=== PATIENT | male | born 1970 | race Two or more races ===

== ENCOUNTER 2018-09-16 15:46 | Inpatient (IN) | payer SELFPAY ==
[~2018-09-16] VITALS: Ht 180.3 cm; Wt 89.4 kg
[2018-09-16] MEDS ORDERED: IV NORMAL SALINE 1,000ML 1,000 ML IV SCH (15:49)
[2018-09-16 16:31] LABS: BASO % 0 % (0-3); EOS # 0.1 x10^3/uL (0.0-0.7); EOS % 1 % (0-3); HEMATOCRIT 45.8 % (39.0-53.0); HEMOGLOBIN 15.6 g/dL (13.0-17.5); LYMPH # 2.1 x10^3/uL (1.0-4.8); LYMPH % 32 % (24-48); MEAN CORPUSCULAR HEMOGLOBIN 32 pg (25-35); MEAN CORPUSCULAR HGB CONC 34 g/dL (31-37); MEAN CORPUSCULAR VOLUME 93 fL (79-100); MONO # 0.4 x10^3/uL (0.0-1.1); MONO % 7 % (0-9); NEUT # 3.8 x10^3uL (1.8-7.7); NEUT % 60 % (31-73); PLATELET COUNT 298 x10^3/uL (140-400); RED BLOOD COUNT 4.92 x10^6/uL (4.30-5.70); RED CELL DISTRIBUTION WIDTH 12.9 % (11.5-14.5); WHITE BLOOD COUNT 6.4 x10^3/uL (4.0-11.0)
--- NOTE | 2018-09-16 16:35 | RAD ---
PQRS Compliance statement: One or more of the following individualized dose reduction techniques were utilized for this examination: 1. Automated exposure control. 2. Adjustment of the mA and/or kV according to patient size. 3. Use of iterative reconstruction technique. Indication:altered mental status, drowsiness TECHNIQUE: CT head without IV contrast COMPARISON:None FINDINGS: No pathologic extra-axial or intra-axial fluid collection. The ventricles and basal cisterns are within normal limits. No acute intracranial bleed. No focal loss of fitzgerald-white differentiation. Orbits within normal limits. No suspicious calvarial lesion. Visualized paranasal sinuses and mastoid air cells are clear. IMPRESSION: No acute intracranial process on this noncontrast CT. If concern for acute ischemic stroke is high, please consider MRI brain. Electronically signed by: Bao Ching DO (09/16/2018 4:32 PM) [id number]
[2018-09-16 16:50] LABS: ALBUMIN 3.7 g/dL (3.4-5.0); CALCIUM 8.9 mg/dL (8.5-10.1); CREATININE 1.5 mg/dL (0.7-1.3); GFR 49.7; MAGNESIUM 2.5 mg/dL (1.8-2.4); POTASSIUM 3.7 mmol/L (3.5-5.1); TOTAL BILIRUBIN 0.4 mg/dL (0.2-1.0); TOTAL PROTEIN 7.5 g/dL (6.4-8.2)
[2018-09-16] MEDS ORDERED: NITROGLYCERIN SUBLINGUAL 0.4 MG BOTTLE OF 25. SL ONE (17:15)
[2018-09-16] MEDS ORDERED: ASPIRIN 81 MG TAB.CHEW PO ONE (17:15)
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
[2018-09-16 18:29] LABS: BARBITURATES NEG (NEG); BENZODIAZEPINES NEG (NEG); CANNABINOIDS NEG (NEG); COCAINE NEG (NEG); METHADONE NEG (NEG); OPIATES NEG (NEG); PHENCYCLIDINE NEG (NEG)
[2018-09-16 18:35] LABS: AMPHETAMINE/METHAMPHETAMINE POS (NEG)
--- NOTE | 2018-09-16 19:12 | EKG ---
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
[2018-09-16] MEDS ORDERED: ONDANSETRON PF 4 MG/2 ML VIAL. IV PRN (19:15)
[2018-09-16] MEDS ORDERED: ENOXAPARIN ** NOTE DOSE ** SYRINGE SQ ONE (19:30)
[2018-09-16] MEDS ORDERED: NITROGLYCERIN OINT 1 GM PACKET. TP ONE (19:30)
[2018-09-16 20:23] VITALS: BP 145/82
[2018-09-16] MEDS ORDERED: ACETAMINOPHEN 325 MG TABLET PO PRN (20:45)
[2018-09-16] MEDS: NITROGLYCERIN OINT 1 GM PACKET. TP SCH (20:49)
[2018-09-16] MEDS ORDERED: ENOXAPARIN ** NOTE DOSE ** SYRINGE SQ SCH (21:00)
[2018-09-16] MEDS: IPRATRPIUM/ALBUTEROL 0.5/2.5MG 3 ML NEBU. NEB SCH (21:03)
[2018-09-16] MEDS: IV RINGERS SOLUTION,LACTATED 1,000 ML IV SCH (21:09)
[2018-09-16 23:08] VITALS: BP 121/73
[2018-09-17] MEDS: IV RINGERS SOLUTION,LACTATED 1,000 ML IV SCH (01:31)
[2018-09-17] MEDS: IPRATRPIUM/ALBUTEROL 0.5/2.5MG 3 ML NEBU. NEB SCH ×3 (05:06→15:18)
[2018-09-17 05:17] VITALS: BP 105/64
[2018-09-17 06:23] LABS: BASO % 0 % (0-3); EOS # 0.1 x10^3/uL (0.0-0.7); EOS % 2 % (0-3); HEMATOCRIT 40.5 % (39.0-53.0); HEMOGLOBIN 13.4 g/dL (13.0-17.5); LYMPH # 2.5 x10^3/uL (1.0-4.8); LYMPH % 40 % (24-48); MEAN CORPUSCULAR HEMOGLOBIN 31 pg (25-35); MEAN CORPUSCULAR HGB CONC 33 g/dL (31-37); MEAN CORPUSCULAR VOLUME 94 fL (79-100); MONO # 0.4 x10^3/uL (0.0-1.1); MONO % 6 % (0-9); NEUT # 3.2 x10^3uL (1.8-7.7); NEUT % 52 % (31-73); PLATELET COUNT 217 x10^3/uL (140-400); RED CELL DISTRIBUTION WIDTH 13.2 % (11.5-14.5); WHITE BLOOD COUNT 6.1 x10^3/uL (4.0-11.0)
[2018-09-17 06:33] LABS: CREATININE 1.2 mg/dL (0.7-1.3); GFR 64.4; POTASSIUM 3.4 mmol/L (3.5-5.1)
--- NOTE | 2018-09-17 06:41 | RAD ---
Single view chest dated 09/16/2018. No comparison available. CLINICAL INDICATION: Chest pain and somnolence. FINDINGS: Single upright portable exam performed. Heart and mediastinal contours are within normal limits. Lungs are clear without focal consolidation. Vascular interstitium within normal limits. No pleural effusion or pneumothorax. IMPRESSION: No acute radiographic abnormality. Electronically signed by: Chuy Theodore MD (09/17/2018 6:38 AM) [facility]
[2018-09-17] MEDS ORDERED: POTASSIUM CHLORIDE 20 MEQ TABLET.ER. PO ONE (07:30)
[2018-09-17] MEDS: NITROGLYCERIN OINT 1 GM PACKET. TP SCH (08:44)
[2018-09-17] MEDS ORDERED: ASPIRIN 81 MG TAB.CHEW PO SCH (09:00)
[2018-09-17] MEDS ORDERED: ENOXAPARIN ** NOTE DOSE ** SYRINGE SQ SCH ×2 (09:00)
[2018-09-17 11:13] VITALS: BP 127/66
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
--- NOTE | 2018-09-17 14:27 | PDOC ---
PROVIDER NOTE PROVIDER NOTE PROVIDER NOTE Cardiology consultation note: Reason for consultation elevated troponin and chest pain History of present illness 48-year-old man who apparently was brought to the emergency department in the setting of mental status changes and drug abuse was noted to have a elevated troponin and was admitted for further evaluation and treatment. He probably does not have any significant cardiac pathology at baseline. Denies any functional limitations. He is able to do this such as mow the yard, shovel snow etc w/o problems. Past medical history No significant past medical history Social history: As noted per primary H&P. Patient is positive for amphetamine use. Allergies no known drug allergies Current cardiovascular medications none Family history: As noted per primary H&P. Patient does not have any significant sudden cardiac history or early coronary disease. Review systems is otherwise noted above in history of present illness. Constitutional: Well developed, well nourished, no acute distress, non-toxic appearance. [] HENT: Normocephalic, atraumatic, bilateral external ears normal, oropharynx moist, no oral exudates, nose normal. [] Eyes: PERRLA, EOMI, conjunctiva normal, no discharge. [] Neck: Normal range of motion, no tenderness, supple, no stridor. [] Cardiovascular:Heart rate regular rhythm, no murmur [] Lungs & Thorax: Bilateral rhonchi [] Abdomen: Bowel sounds normal, soft, no tenderness, no masses, no pulsatile masses. [] Skin: Warm, dry, no erythema, no rash. [] Back: No tenderness, no CVA tenderness. [] Extremities: No tenderness, no cyanosis, no clubbing, ROM intact, no edema. [] Neurologic: Alert and oriented X 3, normal motor function, normal sensory function, no focal deficits noted. [] Psychologic: Affect normal, judgement normal, mood normal. [] Diagnostic testing: Troponin peak at 0.7 EKG demonstrates sinus rhythm with nonspecific ST-T wave changes. No acute infarct evident Creatinine elevated 1.5 but now down trended to 1.2. Chest x-ray is unremarkable. CT of the head is unremarkable. Impression: 1. Elevated troponin in the setting of amphetamine use and acute kidney injury Recommendations: 1. Repeat EKG unremarkable. Trop downtrending. No current chest pain. Would favor continued conservative mgmt. 2. I advised f/u with a PCP in [place] for routine evaluation. 3. Will try to obtain bedside echo if patient is able to stay. Otherwise, ok to DC. Thanks. ANDRIA HALL MD Sep 17, 2018 14:27
[2018-09-17 14:57] VITALS: BP 135/90
--- NOTE | 2018-09-17 18:19 | DS ---
DATE OF DISCHARGE: 09/16/2018 HOSPITAL COURSE: The patient was admitted with a complaint of chest pain and elevated troponin. His troponin has trended downward and had a bedside echocardiogram, which was unremarkable. He was seen in consultation by the farm reporter who recommended the patient can be discharged safely from the care and was advised to follow with his primary care physician in [place] for routine evaluation. PHYSICAL EXAMINATION: GENERAL: When I saw him this afternoon, he looked well and was clearly in no apparent respiratory distress. No pallor, jaundice, cyanosis, or thyromegaly. No jugular venous distension. No lower limb edema. VITAL SIGNS: Her heart rate was 84, blood pressure 135/90, temperature was 98.3, respiratory rate 20, and oxygen saturation was 95%. Rest of clinical exam is stable, has not really changed. MEDICATIONS: The patient is on no medications. He was discharged to follow up with his primary care physician. FINAL DISCHARGE DIAGNOSES: Atypical chest pain, myocardial infarction ruled out; amphetamine abuse. BLAIR MUNOZ MD DR: ADI/honorio JOB#: [id number] / [id number]
--- NOTE | 2018-09-27 21:40 | EKG ---
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
--- NOTE | 2018-10-10 11:02 | EKG ---
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
== END 2018-09-17 19:03 | disposition home or self-care (01) | DRG 684 ==
LOC: EDBD 15:46 → ER 15:46 → EEVIPCON 15:46 → ER 20:05 → 1 SOUTH 20:19
PROVIDERS: ADMIT Internal Medicine; ATTEND Internal Medicine
DX: N17.9 Acute kidney failure, unspecified (principal); R07.89 Other chest pain; F15.10 Other stimulant abuse, uncomplicated; Z82.49 Family history of ischemic heart disease and other diseases of the circulatory system
CPT/HCPCS: 36415; 70450; 71045; 80048; 80053; 80061; 80307; 82553; 83735; 83880; 84484; 85025; 85379; 85610; 85730; 93005; 94640; 96360; 96372; G0480; J1650; J7120; J7620; 99285-25; J7030